=== PATIENT | female | born 1960 | race American Indian/Alaskan Native ===

== ENCOUNTER 2019-05-30 15:04 | Outpatient (CLI) | payer OTHER ==
--- NOTE | 2019-05-30 16:26 | XRay Report ---
CERVICAL SPINE 3 VIEWS INDICATION: Z02.71(DISABILITY EXAMINATION/M54.2) CERVICALGIA. COMPARISON: No relevant prior imaging study available. FINDINGS: As the patient is positioned, there is loss of normal cervical lordosis. Alignment is otherwise unrem arkable without listhesis. There is moderate discogenic degenerative change at C4-5, C5-6, and C6-7. Vertebral body height is maintained. There is no prevertebral soft tissue swelling. IMPRESSION: 1. Mild spondylitic changes as above. 2. No acute fracture, no subluxation. Signer Name: Nick Skinner MD Signed: 05/30/2019 4:22 PM Workstation Name: [id number]
== END 2019-05-30 15:05 | disposition home or self-care (01) ==
LOC: XRAY 15:04
PROVIDERS: ATTEND Internal Medicine
DX: Z02.71 Encounter for disability determination (principal); M46.82 Other specified inflammatory spondylopathies, cervical region; M54.2 Cervicalgia
CPT/HCPCS: 72040